=== PATIENT | male | born 1980 | race Caucasian/White ===

== ENCOUNTER 2017-07-29 14:40 | Emergency (ER) | payer SELFPAY ==
[~2017-07-29] VITALS: Ht 180.3 cm; Wt 99.8 kg
[~2017-07-29 14:40] MED LIST: ALBUTEROL0.09 MG/A2 INH; AMOXICILLIN500 MG PO; ANAPROX DS550 MG PO; AUGMENTIN 875875 MG PO; BACTRIM DS 8001 TA1 PO; CATAFLAM50 MG PO; CIPRO500 MG PO; CIPRODEX 0.3%-7.5 ML OT; CLINDAMYCIN HC300 MG PO; DARVOCET A500 51 TAB PO; DARVOCET N 1001 TAB PO; EPI-PEN1 MG/ML MR; FLEXERIL10 MG PO; FLONASE ALLERG9.9 ML NAS; HYDROCODONE BIT1 T11 PO; KEFLEX500 MG PO; LOMOTIL 0.025 M1 TA1 PO; MIDRIN (DURADR1 CAP PO; MOTRIN600 MG PO; MOTRIN800 MG PO; NAPROSYN500 MG PO; NKHM; NKHM PO; NORFLEX100 MG PO; PEN-VEE K500 MG PO; PEPCID20 MG PO; PHENERGAN25 M3 PO; PREDNICOT20 MG PO; PREDNISONE10 MG PO; PRILOSEC20 M1 PO; ROBAXIN; ROBITUSSIN AC 110 ML PO; TAMIFLU75 MG PO; TESSALON PERLE200 MG PO; TRAMADOL HCL50 MG PO; TYLENOL W/CODEI1 TA2 PO; ULTRAM50 MG PO; VICODIN 5/500 505 MG PO; WYMOX500 MG PO; ZANTAC150 MG PO; ZITHROMAX Z PA250 MG PO; ZOFRAN ODT4 MG SL; ZOFRAN ODT8 MG PO; ZOFRAN4 MG PO; ZYRTEC10 MG PO; [UNRECOGNIZED DRUG - OTHER] OT
[2017-07-29 14:46] VITALS: BP 132/74
[2017-07-29] MEDS ORDERED: FLONASE ALLERG9.9 ML NAS (14:51)
[2017-07-29] MEDS ORDERED: ALLEGRA-D 24 H1 EACH PO (14:51)
[2017-07-29] MEDS ORDERED: ZITHROMAX250 MG PO (14:51)
[2017-07-29] MEDS ORDERED: AUGMENTIN 875875 MG PO (14:56)
== END 2017-07-29 19:27 | disposition home or self-care (01) ==
LOC: ED 14:40
DX: J01.91 Acute recurrent sinusitis, unspecified (principal); J02.9 Acute pharyngitis, unspecified

== ENCOUNTER 2017-08-11 07:29 | Emergency (ER) | payer SELFPAY ==
[~2017-08-11] VITALS: Ht 154.9 cm; Wt 99.8 kg
[~2017-08-11 07:29] MED LIST changes: +ALLEGRA-D 24 H1 EACH PO; +ZITHROMAX250 MG PO
[2017-08-11 08:28] LABS: BASO # 0.1 10*3/uL (0.0-0.1); BASO % 0.9 % (0.0-1.0); EOS # 0.1 10*3/uL (0.0-0.4); EOS % 2.1 % (1.0-4.0); HEMATOCRIT 47.4 % (42.0-52.0); HEMOGLOBIN 16.7 g/dl (14.0-18.0); LYMPH # 1.6 10*3/uL (1.3-4.4); LYMPH % 30.7 % (27.0-41.0); MEAN CELL VOLUME 85.3 fl (80.0-94.0); MEAN CORPUSCULAR HGB CONC 35.2 g/dl (33.0-37.0); MEAN PLATELET VOLUME 9.4 fl (9.6-12.3); MONO # 0.4 10*3/uL (0.1-1.0); NEUT # 3.1 10*3/uL (2.3-7.9); NEUT % 58.1 % (47.0-73.0); PLATELET COUNT AUTOMATED 282 10*3/uL (130-400); RED BLOOD COUNT 5.56 10*6/uL (4.50-5.90); RED CELL DISTRI WIDTH 12.9 % (0-14.5); WHITE BLOOD COUNT 5.3 10*3/uL (4.8-10.8)
[2017-08-11 08:36] LABS: ACT PARTIAL THROMBO TIME 23.3 SECONDS (20.8-31.5)
[2017-08-11 08:41] VITALS: BP 115/76
[2017-08-11 08:42] LABS: ALBUMIN 3.7 gm/dl (3.1-4.5); ALKALINE PHOSPHATASE 90 U/L (45-117); BUN 13 mg/dl (7-24); CHLORIDE 105 mmol/L (98-107); CREATININE 1.04 mg/dL (0.70-1.30); MAGNESIUM 2.2 mg/dL (1.5-2.1); SGOT/AST 24 IU/L (3-35); SGPT/ALT 54 U/L (12-78); SODIUM 136 mmol/L (136-145); TOTAL PROTEIN 7.3 gm/dL (6.4-8.2)
[2017-08-11] MEDS ORDERED: Motrin,Rufen800 MG PO (09:55)
[2017-08-11] MEDS ORDERED: CYCLOBENZAPRINE10 MG PO (09:55)
== END 2017-08-11 09:58 | disposition home or self-care (01) ==
LOC: ED 07:29
PROVIDERS: Emergency Medicine
DX: S16.1XXA Strain of muscle, fascia and tendon at neck level, initial encounter (principal); G43.909 Migraine, unspecified, not intractable, without status migrainosus; X58.XXXA Exposure to other specified factors, initial encounter; Y93.9 Activity, unspecified; Y92.9 Unspecified place or not applicable; Y99.9 Unspecified external cause status

== ENCOUNTER 2017-10-19 06:57 | Emergency (ER) | payer SELFPAY ==
[~2017-10-19] VITALS: Ht 180.3 cm; Wt 99.3 kg
[~2017-10-19 06:57] MED LIST changes: +CYCLOBENZAPRINE10 MG PO; +Motrin,Rufen800 MG PO
[2017-10-19 07:03] VITALS: BP 117/71
[2017-10-19 07:39] LABS: BASO # 0.1 10*3/uL (0.0-0.1); BASO % 0.8 % (0.0-1.0); EOS # 0.1 10*3/uL (0.0-0.4); EOS % 1.5 % (1.0-4.0); HEMATOCRIT 46.6 % (42.0-52.0); HEMOGLOBIN 15.7 g/dl (14.0-18.0); LYMPH # 1.9 10*3/uL (1.3-4.4); LYMPH % 23.9 % (27.0-41.0); MEAN CELL VOLUME 85.8 fl (80.0-94.0); MEAN CORPUSCULAR HGB 28.9 pg (27.0-31.0); MEAN CORPUSCULAR HGB CONC 33.7 g/dl (33.0-37.0); MEAN PLATELET VOLUME 9.5 fl (9.6-12.3); MONO # 0.6 10*3/uL (0.1-1.0); MONO % 7.6 % (3.0-9.0); NEUT # 5.2 10*3/uL (2.3-7.9); NEUT % 65.9 % (47.0-73.0); PLATELET COUNT AUTOMATED 261 10*3/uL (130-400); RED BLOOD COUNT 5.43 10*6/uL (4.50-5.90); RED CELL DISTRI WIDTH 13.1 % (0-14.5); WHITE BLOOD COUNT 7.9 10*3/uL (4.8-10.8)
[2017-10-19 08:01] LABS: ALBUMIN 3.6 gm/dl (3.1-4.5); ALKALINE PHOSPHATASE 80 U/L (45-117); BUN 16 mg/dl (7-24); CHLORIDE 106 mmol/L (98-107); CREATININE 0.92 mg/dL (0.70-1.30); LIPASE 332 U/L (73-393); POTASSIUM 3.7 mmol/L (3.5-5.1); SGOT/AST 21 IU/L (3-35); SGPT/ALT 55 U/L (12-78); SODIUM 139 mmol/L (136-145); TOTAL PROTEIN 6.9 gm/dL (6.4-8.2)
[2017-10-19] MEDS ORDERED: Zofran4 MG PO (08:53)
== END 2017-10-19 09:38 | disposition home or self-care (01) ==
LOC: ED 06:57
PROVIDERS: Emergency Medicine
DX: K52.9 Noninfective gastroenteritis and colitis, unspecified (principal); G43.909 Migraine, unspecified, not intractable, without status migrainosus; R10.84 Generalized abdominal pain; F17.200 Nicotine dependence, unspecified, uncomplicated; Z79.899 Other long term (current) drug therapy

== ENCOUNTER 2017-12-26 19:54 | Emergency (ER) | payer SELFPAY ==
[~2017-12-26] VITALS: Ht 154.9 cm; Wt 104.3 kg
[~2017-12-26 19:54] MED LIST changes: +Zofran4 MG PO
[2017-12-26] MEDS ORDERED: AMLODIPINE BESY10 MG PO (20:11)
[2017-12-26 20:38] VITALS: BP 121/85
[2017-12-26] MEDS ORDERED: PENICILLIN VK500 MG PO (20:55)
[2017-12-26] MEDS ORDERED: MOBIC7.5 MG PO (20:55)
== END 2017-12-26 20:55 | disposition home or self-care (01) ==
LOC: ED 19:54
DX: K04.7 Periapical abscess without sinus (principal); G43.909 Migraine, unspecified, not intractable, without status migrainosus; Z79.899 Other long term (current) drug therapy

== ENCOUNTER 2018-02-02 10:38 | Emergency (ER) | payer SELFPAY ==
[~2018-02-02] VITALS: Ht 180.3 cm; Wt 93.9 kg
[~2018-02-02 10:38] MED LIST changes: +AMLODIPINE BESY10 MG PO; +MOBIC7.5 MG PO; +PENICILLIN VK500 MG PO
[2018-02-02 10:40] VITALS: BP 132/88
[2018-02-02] MEDS ORDERED: ZYRTEC10 MG PO (12:09)
[2018-02-02] MEDS ORDERED: AMOXICILLIN500 M2 PO (12:09)
== END 2018-02-02 12:16 | disposition home or self-care (01) ==
LOC: ED 10:38
DX: J01.90 Acute sinusitis, unspecified (principal); F10.10 Alcohol abuse, uncomplicated

== ENCOUNTER 2018-08-07 17:11 | Emergency (ER) | payer SELFPAY ==
[~2018-08-07] VITALS: Ht 182.8 cm; Wt 99.8 kg
[~2018-08-07 17:11] MED LIST changes: +AMOXICILLIN500 M2 PO
[2018-08-07] MEDS ORDERED: KEFLEX500 M1 PO (17:21)
[2018-08-07] MEDS ORDERED: NAPROSYN500 MG PO (17:21)
[2018-08-07] MEDS ORDERED: SEPTDS PO (17:21)
[2018-08-07 17:40] VITALS: BP 92/53
== END 2018-08-07 18:28 | disposition home or self-care (01) ==
LOC: ED 17:11
DX: L05.01 Pilonidal cyst with abscess (principal); G43.909 Migraine, unspecified, not intractable, without status migrainosus

== ENCOUNTER 2018-10-23 13:07 | Emergency (ER) | payer SELFPAY ==
[~2018-10-23] VITALS: Ht 180.3 cm; Wt 99.3 kg
[~2018-10-23 13:07] MED LIST changes: +KEFLEX500 M1 PO; +SEPTDS PO
[2018-10-23 13:10] VITALS: BP 106/77
[2018-10-23] MEDS ORDERED: SEPTDS PO (13:42)
== END 2018-10-23 14:08 | disposition home or self-care (01) ==
LOC: ED 13:07
DX: L02.411 Cutaneous abscess of right axilla (principal); G43.909 Migraine, unspecified, not intractable, without status migrainosus; Z90.89 Acquired absence of other organs

== ENCOUNTER 2019-02-13 17:54 | Emergency (ER) | payer SELFPAY ==
[~2019-02-13] VITALS: Ht 180.3 cm; Wt 90.7 kg
[2019-02-13 17:57] VITALS: BP 125/79
[2019-02-13 18:52] LABS: BILIRUBIN NEGATIVE (NEGATIVE); BLOOD NEGATIVE (NEGATIVE); CLARITY CLEAR (CLEAR); COLOR YELLOW (YELLOW); GLUCOSE NEGATIVE (NEGATIVE); KETONE TRACE (NEGATIVE); LEUKO ESTERASE NEGATIVE (NEGATIVE); NITRITE NEGATIVE (NEGATIVE); UROBILINOGEN 0.2 E.U./dl (0.2-1.0)
[2019-02-13 19:07] LABS: BACTERIA TRACE; RBC 0-2 rbc/hpf (0-2)
[2019-02-15 19:05] LABS: GONOCOCCUS BY NAA Negative (Negative)
[2019-05-22] MEDS ORDERED: PENICILLIN-VK500 MG PO (14:11)
[2019-05-22] MEDS ORDERED: NAPROSYN500 MG PO (14:11)
== END 2019-02-13 20:30 | disposition home or self-care (01) ==
LOC: ED 17:54
PROVIDERS: Nurse Practitioner Family
DX: Z11.3 Encounter for screening for infections with a predominantly sexual mode of transmission (principal); Z79.2 Long term (current) use of antibiotics; Z79.899 Other long term (current) drug therapy

== ENCOUNTER 2019-10-22 21:15 | Emergency (ER) | payer SELFPAY ==
[~2019-10-22] VITALS: Ht 180.3 cm; Wt 99.3 kg
[~2019-10-22 21:15] MED LIST changes: +PENICILLIN-VK500 MG PO
[2019-10-22 21:18] VITALS: BP 118/81
[2019-10-22] MEDS ORDERED: Motrin,Rufen800 MG PO (21:49)
[2019-10-22] MEDS ORDERED: CLINDAMYCIN150 MG PO (21:49)
== END 2019-10-22 22:09 ==
LOC: ED 21:15
DX: K04.7 Periapical abscess without sinus (principal); K02.9 Dental caries, unspecified; G43.909 Migraine, unspecified, not intractable, without status migrainosus